=== PATIENT | female | born 1960 | race Caucasian/White ===

== ENCOUNTER 2020-02-02 16:13 | Emergency (ER) | payer MEDICARE ==
[~2020-02-02] VITALS: Ht 149.9 cm; Wt 52.9 kg
--- NOTE | 2020-02-02 16:55 | NUR ---
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
[2020-02-02] MEDS ORDERED: HYDROcodone/APAP 5/325 TABLET PO ONE (17:30)
--- NOTE | 2020-02-02 17:31 | NUR ---
FIRST CONTACT WITH PT. PT C/O HBP AT HOME OF 180/100 FOR LAST WEEK WITH CAMARENA AND N/V. PT'S AOX4. RESPS EVEN AND UNLABORED. ALL MONITORS IN PLACE. CALL LIGHT WITHIN REACH.
[2020-02-02] MEDS ORDERED: HYDROcodone/APAP 5/325 TABLET ONE (17:50)
[2020-02-02 17:51] LABS: BASOPHILS # (AUTO) 0.03 x10^3/uL (0-0.1); BASOPHILS % (AUTO) 1 % (0-1); EOSINOPHILS # (AUTO) 0.17 x10^3/uL (0-0.4); EOSINOPHILS % (AUTO) 3 % (1-7); LYMPHOCYTES # (AUTO) 2.12 x10^3/uL (1-3.4); LYMPHOCYTES % (AUTO) 40 % (22-44); MD NO; MEAN CORPUSCULAR HEMOGLOBIN 32.7 pg (27.0-34.8); MEAN CORPUSCULAR HGB CONC 32.7 g/dL (32.4-35.8); MEAN CORPUSCULAR VOLUME 99.9 fL (80-100); MEAN PLATELET VOLUME 8.4 fL (7.4-10.4); MONOCYTES % (AUTO) 8 % (2-9); NEUTROPHILS # (AUTO) 2.59 x10^3/uL (1.8-6.8); NEUTROPHILS % (AUTO) 49 % (42-75); PLATELET COUNT 207 x10^3/uL (130-400); RED CELL DISTRIBUTION WIDTH 13.8 % (9.6-15.2)
--- NOTE | 2020-02-02 18:01 | NUR ---
PT MEDICATED PER EMAR. PT TOLERATED WELL. PT'S AOX4. RESPS EVEN AND UNLABORED.
[2020-02-02 18:04] LABS: ALBUMIN 3.1 g/dL (3.4-5.0); ANION GAP 7 mmol/L (5-15); CALCIUM 8.3 mg/dL (8.5-10.1); CHLORIDE 113 mmol/L (98-107); CREATININE 0.95 mg/dL (0.55-1.02)
[2020-02-02 18:07] LABS: TROPONIN I 0.021 ng/mL (0.000-0.045)
--- NOTE | 2020-02-02 18:56 | NUR ---
PT'S PAIN LEVEL IS STILL 8/10. PT C/O CAMARENA AND NAUSEA AT THIS TIME AND REQUESTING PAIN MED. EDMD NOTIFIED.
--- NOTE | 2020-02-02 19:03 | NUR ---
REPORT GIVEN TO LINDA BENSON.
--- NOTE | 2020-02-02 19:07 | NUR ---
Break rn: Pt bedside report from Anisha gagnon. This rn to assume care of pt. Pt asking for pain medication for pain not well controlled and CAMARENA. aware. Awaiting further ordrs.
[2020-02-02] MEDS ORDERED: ONDANSETRON ODT 4 MG ONE (19:16)
[2020-02-02] MEDS ORDERED: KETOROLAC 30 MG/1 ML ONE (19:16)
--- NOTE | 2020-02-02 19:28 | NUR ---
Bedside report to Shayy gagnon. No immediate needs from family or pt. Medicated per oct.
--- NOTE | 2020-02-02 19:29 | NUR ---
BEDSIDE REPORT AND CARE FROM LINDA BENSON AT THIS TIME. PT MEDICATED FOR 8-8.5/10 CAMARENA PAIN AND NAUSEA BY LINDA BENSON. PT BP WITH SLIGHT IMPROVEMENT, DISCUSSED WITH DR. MATTHEWS, AWARE OF BP, TO CONTINUE TO MONITOR, NO NEW ORDERS RECEIVED. PT REPORTS +PHOTOPHOBIA, NAUSEA WITH CAMARENA. DENIES DIZZINESS OR VISUAL CHANGES. AMBULATED TO RESTROOM WITH STEADY GAIT. RESTING IN POSITION OF COMFORT. VSS. SB ON MONITOR. CALL LIGHT IN REACH. FALL PRECAUTIONS IN PLACE.
[2020-02-02] MEDS ORDERED: ONDANSETRON ODT 4 MG PO ONE (19:30)
[2020-02-02] MEDS ORDERED: KETOROLAC 30 MG/1 ML IM ONE (19:30)
--- NOTE | 2020-02-02 19:54 | NUR ---
BEDSIDE REPORT AND TRANSFER OF CARE TO EMILIE BENSON AT THIS TIME
--- NOTE | 2020-02-02 20:29 | NUR ---
IMPROVED BP NOTED. PT REPORTS IMPROVEMENT IN CAMARENA. DC EDUCATION PROVIDED, PT DEMONSTRATES UNDERSTANDING. PT AMBULATED STEADILY TO DC WITH RN AND SO. SO TO TRANSPORT PT HOME.
[2020-02-02 20:30] VITALS: BP 159/90
== END 2020-02-02 20:31 | disposition home or self-care (01) ==
LOC: ED 17:37
DX: I10 Essential (primary) hypertension (principal); R51 Headache
CPT/HCPCS: 36415; 80048; 82040; 83880; 84484; 85025; 96372; 99285; J1885; Q0162

== ENCOUNTER 2020-02-04 10:12 | Emergency (ER) | payer MEDICARE ==
[~2020-02-04] VITALS: Ht 149.9 cm; Wt 53.3 kg
--- NOTE | 2020-02-04 11:29 | NUR ---
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
[2020-02-04 11:34] LABS: BASOPHILS # (AUTO) 0.03 x10^3/uL (0-0.1); BASOPHILS % (AUTO) 1 % (0-1); EOSINOPHILS # (AUTO) 0.15 x10^3/uL (0-0.4); EOSINOPHILS % (AUTO) 3 % (1-7); LYMPHOCYTES # (AUTO) 2.32 x10^3/uL (1-3.4); LYMPHOCYTES % (AUTO) 40 % (22-44); MD NO; MEAN CORPUSCULAR HEMOGLOBIN 32.5 pg (27.0-34.8); MEAN CORPUSCULAR HGB CONC 32.4 g/dL (32.4-35.8); MEAN CORPUSCULAR VOLUME 100.2 fL (80-100); MEAN PLATELET VOLUME 8.6 fL (7.4-10.4); MONOCYTES # (AUTO) 0.33 x10^3/uL (0.2-0.8); MONOCYTES % (AUTO) 6 % (2-9); NEUTROPHILS # (AUTO) 2.92 x10^3/uL (1.8-6.8); NEUTROPHILS % (AUTO) 51 % (42-75); PLATELET COUNT 226 x10^3/uL (130-400); RED BLOOD COUNT 3.86 x10^6/uL (3.82-5.3)
--- NOTE | 2020-02-04 11:48 | NUR ---
PT C/O HIGH BP SINCE END OF NOVEMBER. TODAY AT HOME BP 180/110, SO PT CAME TO ED. PT C/O CAMARENA WHEN BP IS HIGH. PT DOUBLED HER LISINOPRIL THIS AM. PT CONNECTED TO MONITORING. CALL LIGHT IN REACH. AWAITING FURTHER ORDERS.
[2020-02-04 11:54] LABS: ALBUMIN 3.6 g/dL (3.4-5.0); ANION GAP 6 mmol/L (5-15); CHLORIDE 112 mmol/L (98-107); CREATININE 0.98 mg/dL (0.55-1.02)
--- NOTE | 2020-02-04 12:48 | NUR ---
PT RESTING ON DEEPTI. ALIS. WARM BLANKET PROVIDED.
--- NOTE | 2020-02-04 13:14 | NUR ---
AT BEDSIDE FOR ASSESSMENT.
[2020-02-04] MEDS ORDERED: ONDANSETRON 2MG/ML, 2ML ONE (13:22)
[2020-02-04] MEDS ORDERED: MORPHINE SULFATE 4 MG/ML, 1ML ONE (13:22)
[2020-02-04] MEDS ORDERED: ONDANSETRON 2MG/ML, 2ML IVPush ONE (13:30)
[2020-02-04] MEDS ORDERED: MORPHINE SULFATE 4 MG/ML, 1ML IVPush PRN (13:30)
[2020-02-04] MEDS ORDERED: SODIUM CHLORIDE FLUSH 10ML SYR IVF ONE (13:30)
[2020-02-04 13:53] VITALS: BP 171/93
--- NOTE | 2020-02-04 13:53 | NUR ---
PIV PLACED BY TASK RN. MEDS ADMIN PER OCT. PT TAKEN TO CT.
--- NOTE | 2020-02-04 14:22 | NUR ---
ALL RESULTS ARE BACK AT THIS TIME. CHART UP FOR RECHECK.
== END 2020-02-04 15:29 | disposition home or self-care (01) ==
LOC: ED 12:12
DX: R00.1 Bradycardia, unspecified (principal); R51 Headache; I10 Essential (primary) hypertension; R11.0 Nausea
CPT/HCPCS: 36415; 70450; 71045; 80048; 82040; 85025; 93005; 96374; 96375; 99285; J2270; J2405

== ENCOUNTER 2020-02-17 06:21 | Observation (INO) | payer MEDICARE, MEDICAID ==
[~2020-02-17] VITALS: Ht 149.9 cm; Wt 51.7 kg
[~2020-02-17 06:21] MED LIST: BACITRACIN 50,000 UNIT ONE; BUPIVACAINE/EPI 0.5% 1:200K ONE; VANCOMYCIN 1,000 MG ONE
[2020-02-17] MEDS ORDERED: LACTATED RINGERS 1,000 ML IV SCH (06:42)
[2020-02-17] MEDS ORDERED: CHLORHEXIDINE 15 ML UDC MM STA (06:42)
[2020-02-17 06:53] VITALS: BP 158/98
[2020-02-17] MEDS ORDERED: ACETAMINOPHEN 500 MG TABLET PO ONE (07:00)
[2020-02-17] MEDS ORDERED: GABAPENTIN 300 MG CAPSULE PO ONE (07:00)
[2020-02-17] MEDS ORDERED: HYDR-3240 PO (08:24)
[2020-02-17] MEDS ORDERED: DULO30CA2 PO (08:24)
[2020-02-17] MEDS ORDERED: GABA600T7 PO (08:24)
[2020-02-17] MEDS ORDERED: LEVE500T22 PO (08:24)
[2020-02-17] MEDS ORDERED: LURA60TA PO (08:24)
[2020-02-17] MEDS ORDERED: LISI-170 PO (08:24)
[2020-02-17] MEDS ORDERED: FAMO10TA31 PO (08:24)
[2020-02-17] MEDS ORDERED: METO25TA35 PO (08:24)
[2020-02-17] MEDS ORDERED: FENTANYL PF 250 MCG/5ML ONE (08:55)
[2020-02-17] MEDS ORDERED: MIDAZOLAM 1 MG/ML, 2ML ONE (08:55)
[2020-02-17] MEDS ORDERED: LIDOCAINE 4%, 4 ML SYR/CANN TP ONE (08:57)
[2020-02-17] MEDS ORDERED: MEPERIDINE/PF 25MG/0.5ML IVPush PRN (09:00)
[2020-02-17] MEDS ORDERED: LABETALOL 5MG/ML, 20ML IV PRN (09:00)
[2020-02-17] MEDS ORDERED: HYDROmorphone 1 MG/ML, 1ML INJ IVPush PRN (09:00)
[2020-02-17] MEDS ORDERED: OXYcodone 5 MG/5 ML ORAL.SOL UDC PO PRN (09:00)
[2020-02-17] MEDS ORDERED: PROMETHAZINE 25 MG/ML, 1ML IVPush PRN (09:00)
[2020-02-17] MEDS ORDERED: HALOPERIDOL 5 MG/ML IV PRN (09:00)
[2020-02-17] MEDS ORDERED: DIPHENHYDRAMINE 50 MG/ML, 1ML IVPush PRN (09:00)
[2020-02-17] MEDS ORDERED: hydrALAzine 20 MG/ML, 1ML IV PRN (09:00)
[2020-02-17] MEDS ORDERED: CEFAZOLIN 1,000 MG ONE (09:44)
[2020-02-17] MEDS ORDERED: ONDANSETRON 2MG/ML, 2ML ONE (09:44)
[2020-02-17] MEDS ORDERED: DEXAMETHASONE 4 MG/ML, 1ML ONE (09:44)
[2020-02-17] MEDS ORDERED: OXYcodone 5 MG/5 ML ORAL.SOL UDC ONE (10:06)
[2020-02-17] MEDS ORDERED: hydrALAzine 20 MG/ML, 1ML ONE (10:06)
[2020-02-17] MEDS ORDERED: HYDROmorphone 1 MG/ML, 1ML INJ ONE (10:21)
[2020-02-17] MEDS ORDERED: FENTANYL PF 100 MCG/2ML ONE (10:21)
[2020-02-17] MEDS: FENTANYL PF 100 MCG/2ML IV PRN ×2 (10:23→10:28)
[2020-02-17] MEDS ORDERED: DIAZEPAM 5 MG/ML, 2ML ONE (10:27)
[2020-02-17] MEDS ORDERED: DIAZEPAM 5 MG/ML, 2ML IVPush PRN (11:00)
[2020-02-17 14:00] VITALS: BP 153/89
[2020-02-17] MEDS ORDERED: ONDANSETRON 2MG/ML, 2ML IVPush PRN (15:00)
[2020-02-17] MEDS ORDERED: PHARMACY INSTRUCTION MC PRN (15:00)
[2020-02-17] MEDS ORDERED: hydrALAzine 20 MG/ML, 1ML IVPush PRN (15:00)
[2020-02-17] MEDS ORDERED: LABETALOL 5MG/ML, 20ML IVPush PRN (15:00)
[2020-02-17] MEDS: HYDROcodone/APAP 10/325 MG TABLET PO PRN ×2 (15:15→16:44)
[2020-02-17] MEDS ORDERED: ENOXAPARIN 40 MG/0.4 ML SQ SCH (16:00)
[2020-02-17] MEDS ORDERED: LACTULOSE 20 GM/30 ML UDC PO PRN (19:00)
[2020-02-17] MEDS ORDERED: BISACODYL 10 MG SUPP PR PRN (19:00)
[2020-02-17 19:24] VITALS: BP 145/86
[2020-02-17] MEDS ORDERED: PROMETHAZINE 25 MG/ML, 1ML IM PRN (20:00)
[2020-02-17] MEDS: OXYcodone IR 5MG TABLET PO PRN (20:12)
[2020-02-17] MEDS: LEVETIRACETAM 500 MG TABLET PO SCH (20:13)
[2020-02-17] MEDS: GABAPENTIN 300 MG CAPSULE PO SCH (20:13)
[2020-02-17] MEDS ORDERED: SENNA/DOCUSATE TABLET PO SCH (21:00)
[2020-02-17] MEDS ORDERED: LIDODERM 5% PATCH TD SCH (21:00)
[2020-02-18 01:59] VITALS: BP 155/85
[2020-02-18] MEDS: OXYcodone IR 5MG TABLET PO PRN ×3 (02:05→12:04)
[2020-02-18 04:42] LABS: BASOPHILS # (AUTO) 0.04 x10^3/uL (0-0.1); BASOPHILS % (AUTO) 1 % (0-1); EOSINOPHILS # (AUTO) 0.28 x10^3/uL (0-0.4); EOSINOPHILS % (AUTO) 4 % (1-7); LYMPHOCYTES # (AUTO) 3.75 x10^3/uL (1-3.4); LYMPHOCYTES % (AUTO) 49 % (22-44); MD NO; MEAN CORPUSCULAR HEMOGLOBIN 32.3 pg (27.0-34.8); MEAN CORPUSCULAR HGB CONC 32.1 g/dL (32.4-35.8); MEAN CORPUSCULAR VOLUME 100.7 fL (80-100); MEAN PLATELET VOLUME 8.6 fL (7.4-10.4); MONOCYTES # (AUTO) 0.61 x10^3/uL (0.2-0.8); MONOCYTES % (AUTO) 8 % (2-9); NEUTROPHILS # (AUTO) 2.93 x10^3/uL (1.8-6.8); NEUTROPHILS % (AUTO) 38 % (42-75); PLATELET COUNT 213 x10^3/uL (130-400); RED BLOOD COUNT 4.04 x10^6/uL (3.82-5.3); RED CELL DISTRIBUTION WIDTH 13.7 % (9.6-15.2)
[2020-02-18 04:55] LABS: ANION GAP 2 mmol/L (5-15); CALCIUM 8.3 mg/dL (8.5-10.1); CHLORIDE 114 mmol/L (98-107)
[2020-02-18 05:24] LABS: ALANINE AMINOTRANSFERASE 23 U/L (12-78); ALKALINE PHOSPHATASE 60 U/L (45-117); BILIRUBIN,TOTAL 0.3 mg/dL (0.2-1.0); CREATININE 0.83 mg/dL (0.55-1.02); TOTAL PROTEIN 5.8 g/dL (6.4-8.2)
[2020-02-18 06:06] VITALS: BP 170/101
[2020-02-18 07:28] VITALS: BP 170/95
[2020-02-18] MEDS ORDERED: LISINOPRIL 40 MG TABLET ONE (08:23)
[2020-02-18] MEDS: LEVETIRACETAM 500 MG TABLET PO SCH (08:29)
[2020-02-18] MEDS: HYDROcodone/APAP 10/325 MG TABLET PO PRN (08:30)
[2020-02-18] MEDS: GABAPENTIN 300 MG CAPSULE PO SCH (08:30)
[2020-02-18] MEDS ORDERED: LURASIDONE 20 MG TABLET PO SCH (09:00)
[2020-02-18] MEDS ORDERED: LISINOPRIL 20 MG TABLET PO SCH (09:00)
[2020-02-18] MEDS ORDERED: DULOXETINE 30 MG CAPSULE.DR PO SCH (09:00)
[2020-02-18] MEDS ORDERED: LIDODERM REMOVE PATCH NOTE XX SCH (09:00)
[2020-02-18 12:05] VITALS: BP 151/98
[2020-02-18] MEDS ORDERED: HYDR-3342 PO (12:09)
[2020-02-18] MEDS ORDERED: LISI1TAB20 PO (12:09)
[2020-02-18] MEDS ORDERED: PROM25SU35 PR (12:09)
[2020-02-18] MEDS ORDERED: HYDR-3653 PO (12:09)
[2020-02-18] MEDS ORDERED: METOPROLOL SUCCINATE 25 MG TAB.ER.24H PO SCH (21:00)
[2020-02-19] MEDS ORDERED: MIDAZOLAM 1 MG/ML, 2ML ONE (06:27)
[2020-02-19] MEDS ORDERED: PROPOFOL 100 ML ONE (06:27)
[2020-02-19] MEDS ORDERED: FENTANYL PF 250 MCG/5ML ONE (06:28)
[2020-02-19] MEDS ORDERED: PROPOFOL 10 MG/ML, 20ML ONE ×2 (06:29)
[2020-02-19] MEDS ORDERED: SUCCINYLCHOLINE 20 MG/ML, 10ML ONE (06:30)
[2020-02-19] MEDS ORDERED: ROCURONIUM 10MG/ML,5ML ONE (06:31)
[2020-02-19] MEDS ORDERED: DEXAMETHASONE 4 MG/ML, 1ML ONE (07:26)
[2020-02-19] MEDS ORDERED: CEFAZOLIN 1,000 MG ONE (07:38)
[2020-02-19] MEDS ORDERED: EPHEDRINE 50 MG/ML, 1ML ONE (07:41)
[2020-02-19] MEDS ORDERED: PHENYLEPHRINE 10 MG/ML ONE (08:01)
[2020-03-06] MEDS ORDERED: HYDR-3653 PO (11:11)
== END 2020-02-18 13:07 | disposition home or self-care (01) ==
LOC: INTOOBSV 06:21 → ORIP 06:21 → 3WST 09:17 → 4WST 12:09 → DCLOUNGE 02-18 13:00
PROVIDERS: ADMIT Neurological Surgery; ATTEND Internal Medicine
DX: M48.061 Spinal stenosis, lumbar region without neurogenic claudication (principal); I10 Essential (primary) hypertension; M54.16 Radiculopathy, lumbar region; G40.909 Epilepsy, unspecified, not intractable, without status epilepticus; F32.9 Major depressive disorder, single episode, unspecified; F41.9 Anxiety disorder, unspecified; I25.10 Atherosclerotic heart disease of native coronary artery without angina pectoris; D75.89 Other specified diseases of blood and blood-forming organs; G89.29 Other chronic pain; E66.9 Obesity, unspecified; Z88.0 Allergy status to penicillin; Z79.899 Other long term (current) drug therapy
CPT/HCPCS: 22558; 22585; 36415; 80053; 82607; 84443; 85025; 87635; 96372; 96374; 96375; G0378; J0360; J0690; J1100; J1170; J1650; J2250; J2405; J2550; J3010; J3360; J7120; J2704; J3370; J0330; J2370

== ENCOUNTER 2020-03-05 08:00 | Outpatient (CLI) | payer MEDICARE, MEDICAID ==
[~2020-03-05 08:00] MED LIST changes: -BACITRACIN 50,000 UNIT ONE; -BUPIVACAINE/EPI 0.5% 1:200K ONE; +DULO30CA2 PO; +FAMO10TA31 PO; +GABA600T7 PO; +HYDR-3240 PO; +HYDR-3342 PO; +HYDR-3653 PO; +LEVE500T22 PO; +LISI-170 PO; +LISI1TAB20 PO; +LURA60TA PO; +METO25TA35 PO; +PROM25SU35 PR; -VANCOMYCIN 1,000 MG ONE
[2020-03-06] MEDS ORDERED: HYDR-3653 PO (11:11)
[2020-03-09] MEDS ORDERED: FAMO20TA7 PO (06:07)
[2020-03-09] MEDS ORDERED: LEVE500T8 PO (06:07)
[2020-03-20] MEDS ORDERED: METH750T87 PO (13:48)
[2020-03-20] MEDS ORDERED: DOXY100C2 PO (13:48)
[2020-03-20] MEDS ORDERED: OXYC5TAB3 PO (13:49)
[2020-03-20] MEDS ORDERED: MORP-52 PO (13:50)
[2020-03-20] MEDS ORDERED: SENN-190 PO (13:51)
[2020-03-20] MEDS ORDERED: [UNRECOGNIZED DRUG - CODE] PO (13:53)
== END 2020-03-05 23:59 | disposition home or self-care (01) ==
LOC: STAR 08:00
PROVIDERS: ATTEND Neurological Surgery
DX: Z01.818 Encounter for other preprocedural examination (principal); Z11.59 Encounter for screening for other viral diseases
CPT/HCPCS: 36415; 87635

== ENCOUNTER 2020-04-27 15:09 | Inpatient (IN) | payer MEDICARE, MEDICAID ==
[~2020-04-27] VITALS: Ht 154.9 cm; Wt 50.1 kg
[~2020-04-27 15:09] MED LIST changes: +DOXY100C2 PO; +FAMO20TA7 PO; +LEVE500T8 PO; +METH750T87 PO; +MORP-52 PO; +OXYC5TAB3 PO; +SENN-190 PO; +[UNRECOGNIZED DRUG - CODE] PO
[2020-04-27] MEDS ORDERED: LORazepam 2 MG/ML, 1ML ONE (15:14)
[2020-04-27] MEDS ORDERED: PLEASE ENTER HEIGHT AND WEIGHT MC SCH (15:30)
[2020-04-27] MEDS ORDERED: LORazepam 2 MG/ML, 1ML IVPush ONE (15:30)
--- NOTE | 2020-04-27 15:40 | NUR ---
PT BIB EMS, PT WITH ALOC AT HOME PER . PER EMS WHEN ARRIVED, PT WITH WITNESSED SIEZURE. PT WITH LABILE BP WELLPER EMS, 205/90 THEN DOWN TO 90'S/60'S. WHEN PT ARRIVED TO ER, PT IS ALOC, NOT ABLE TO ANSWER ANY QUESTIONS APPROPRIATELY. PT IS RESTLESS, MOVING AROUND IN BED. PT PROTECTING OWN AIRWAY WELL. PT PLACED ON MONITORS, ERMD AT FOR ASSESSMENT. WILL FOLLOW ORDERS.
[2020-04-27 15:51] LABS: BASOPHILS # (AUTO) 0.03 x10^3/uL (0-0.1); BASOPHILS % (AUTO) 0 % (0-1); EOSINOPHILS # (AUTO) 0.05 x10^3/uL (0-0.4); EOSINOPHILS % (AUTO) 1 % (1-7); LYMPHOCYTES # (AUTO) 1.41 x10^3/uL (1-3.4); LYMPHOCYTES % (AUTO) 17 % (22-44); MD NO; MEAN CORPUSCULAR HEMOGLOBIN 29.9 pg (27.0-34.8); MEAN CORPUSCULAR HGB CONC 32.2 g/dL (32.4-35.8); MEAN PLATELET VOLUME 8.2 fL (7.4-10.4); MONOCYTES # (AUTO) 0.17 x10^3/uL (0.2-0.8); MONOCYTES % (AUTO) 2 % (2-9); NEUTROPHILS # (AUTO) 6.48 x10^3/uL (1.8-6.8); NEUTROPHILS % (AUTO) 80 % (42-75); PLATELET COUNT 382 x10^3/uL (130-400); RED BLOOD COUNT 4.41 x10^6/uL (3.82-5.3); RED CELL DISTRIBUTION WIDTH 15.8 % (9.6-15.2)
--- NOTE | 2020-04-27 15:55 | NUR ---
LABS DRAWN AND CXR COMPLETED. TASK RN AT BEDSIDE, WILL GO TO CT WITH PT. PT SLIGHTLY MORE AWAKE, ABLE TO ANSWER SOME QUESTIONS APPROPRIATELY.
--- NOTE | 2020-04-27 15:58 | NUR ---
SPOKE WITH PT'S , STATES PT WITH NEW DX OF SIEZURES X6 WEEKS AGO SECONDARY TO HTN. PER , PT WENT "CATATONIC" AND WAS UNABLE TO SPEAK SUDDENLY SO 911 WAS CALLED. PER , WHEN EMS ARRIVED, PT HAD A SIEZURE. PER , PT WITH HX OF LOW BACK SURGERY X 1 MONTH AGO. WILL LET ERMD KNOW.
[2020-04-27 16:02] LABS: ALANINE AMINOTRANSFERASE 16 U/L (12-78); ALBUMIN 3.9 g/dL (3.4-5.0); ANION GAP 12 mmol/L (5-15); CALCIUM 9.5 mg/dL (8.5-10.1); CHLORIDE 98 mmol/L (98-107); CREATININE 0.99 mg/dL (0.55-1.02)
[2020-04-27 16:05] LABS: ALKALINE PHOSPHATASE 140 U/L (45-117); BILIRUBIN,TOTAL 0.6 mg/dL (0.2-1.0); TOTAL PROTEIN 7.9 g/dL (6.4-8.2)
--- NOTE | 2020-04-27 17:04 | NUR ---
PT'S AT BEDSIDE. PT REMAINS ON MONITORS, VSS. PT WITH FREQUENT URINATION, ERMD AWARE. PT'S BEDSHEETS CHANGED. PT CURRENTLY A&OX3, ANSWERING MOST QUESTIONS APPROPRIATELY, REMAINS PROTECTING OWN AIRWAY WELL. CONT TO MONITOR.
[2020-04-27 17:20] LABS: MICROSCOPIC AUTO
[2020-04-27] MEDS ORDERED: METHOCARBAMOL 750 MG TABLET PO PRN (18:00)
[2020-04-27] MEDS ORDERED: OXYcodone IR 5MG TABLET PO PRN (18:00)
[2020-04-27] MEDS ORDERED: LABETALOL 5MG/ML, 20ML IVPush PRN (18:00)
[2020-04-27] MEDS ORDERED: LACTATED RINGERS 1,000 ML IV ONE (18:00)
[2020-04-27] MEDS ORDERED: hydrALAzine 20 MG/ML, 1ML IVPush PRN (18:00)
[2020-04-27] MEDS ORDERED: ONDANSETRON ODT 4 MG PO PRN (18:00)
[2020-04-27] MEDS ORDERED: SENNOSIDES 8.6 MG TABLET PO PRN (18:00)
[2020-04-27] MEDS ORDERED: BUTALB/APAP/CAFFEINE 50MG/325MG/40MG PO PRN (18:00)
[2020-04-27] MEDS ORDERED: ACETAMINOPHEN 325 MG TABLET PO PRN (18:00)
[2020-04-27] MEDS ORDERED: POLYETHYLENE GLYCOL 17 GM PACKET PO PRN (18:00)
[2020-04-27] MEDS ORDERED: MELATONIN 5 MG TABLET PO PRN (18:00)
[2020-04-27] MEDS ORDERED: ONDANSETRON 2MG/ML, 2ML IVPush PRN (18:00)
--- NOTE | 2020-04-27 18:22 | NUR ---
ADMITTING MD AT BEDSIDE, AWARE OF PT'S BP, NO NEW ORDERS CONCERNING BP. PT AND PT'S AWARE OF POC, PT TO BE [facility] ADMIT. PT REMAINS ON MONITORS. WILL FOLLOW ORDERS. PT CURRENTLY ALERT TO BASELINE, ABLE TO FOLLOW COMMANDS, PROTECTING OWN AIRWAY WELL. CONT TO MONITOR.
[2020-04-27] MEDS ORDERED: ENOXAPARIN 40 MG/0.4 ML ONE (18:42)
--- NOTE | 2020-04-27 18:55 | NUR ---
PT TO IMAGING.
[2020-04-27] MEDS: ENOXAPARIN 40 MG/0.4 ML SQ SCH (19:27)
--- NOTE | 2020-04-27 20:13 | NUR ---
PT'S ZARIA [phone].
--- NOTE | 2020-04-27 20:30 | NUR ---
RPEORT GIVEN TO JAILENE BENSON. PT RESTING IN BED, ABLE TO ROUSE BY VOICE. PT REMAINS ON MONITORS. PT OK TO TRANSFER TO FLOOR.
--- NOTE | 2020-04-27 21:25 | NUR ---
PT TRANSFERED TO FLOOR, HAS ALL OWN BELONGINGS.
[2020-04-27 21:30] VITALS: BP 170/80
[2020-04-27] MEDS: GABAPENTIN 300 MG CAPSULE PO SCH (22:00)
[2020-04-27] MEDS: LURASIDONE 20 MG TABLET PO SCH (22:00)
[2020-04-27] MEDS: METOPROLOL TARTRATE 25 MG TAB PO SCH (22:00)
[2020-04-28 01:48] VITALS: BP 130/76
[2020-04-28 07:05] LABS: BASOPHILS # (AUTO) 0.02 x10^3/uL (0-0.1); BASOPHILS % (AUTO) 0 % (0-1); EOSINOPHILS # (AUTO) 0.02 x10^3/uL (0-0.4); EOSINOPHILS % (AUTO) 0 % (1-7); LYMPHOCYTES # (AUTO) 1.74 x10^3/uL (1-3.4); LYMPHOCYTES % (AUTO) 19 % (22-44); MD NO; MEAN CORPUSCULAR HEMOGLOBIN 30.3 pg (27.0-34.8); MEAN CORPUSCULAR HGB CONC 32.5 g/dL (32.4-35.8); MEAN CORPUSCULAR VOLUME 93.3 fL (80-100); MEAN PLATELET VOLUME 8.5 fL (7.4-10.4); MONOCYTES % (AUTO) 9 % (2-9); NEUTROPHILS # (AUTO) 6.76 x10^3/uL (1.8-6.8); NEUTROPHILS % (AUTO) 72 % (42-75); PLATELET COUNT 338 x10^3/uL (130-400); RED BLOOD COUNT 4.58 x10^6/uL (3.82-5.3); RED CELL DISTRIBUTION WIDTH 15.8 % (9.6-15.2)
[2020-04-28 07:11] VITALS: BP 119/77
[2020-04-28 07:20] LABS: ALBUMIN 3.3 g/dL (3.4-5.0); ANION GAP 8 mmol/L (5-15); CALCIUM 9.6 mg/dL (8.5-10.1); CHLORIDE 98 mmol/L (98-107)
[2020-04-28 07:23] LABS: ALANINE AMINOTRANSFERASE 15 U/L (12-78); ALKALINE PHOSPHATASE 135 U/L (45-117); BILIRUBIN,TOTAL 0.5 mg/dL (0.2-1.0); CREATININE 0.77 mg/dL (0.55-1.02); TOTAL PROTEIN 7.2 g/dL (6.4-8.2)
[2020-04-28] MEDS ORDERED: HYDROcodone/APAP 5/325 TABLET ONE ×2 (08:05→13:57)
[2020-04-28] MEDS: FAMOTIDINE 40 MG TABLET PO SCH (08:21)
[2020-04-28] MEDS: SENNA/DOCUSATE TABLET PO SCH (08:21)
[2020-04-28] MEDS: DULOXETINE 30 MG CAPSULE.DR PO SCH (08:22)
[2020-04-28] MEDS: GABAPENTIN 300 MG CAPSULE PO SCH ×2 (08:22→20:09)
[2020-04-28 15:00] VITALS: BP 135/88
[2020-04-28] MEDS ORDERED: MAGNESIUM SULFATE PMX 2GM/50ML 50 ML IV ONE (15:00)
[2020-04-28] MEDS ORDERED: POTASSIUM CHLORIDE 20 MEQ in SODIUM CHLORIDE 0.9% 250 ML IV ONE (15:00)
[2020-04-28] MEDS: ENOXAPARIN 40 MG/0.4 ML SQ SCH (18:41)
[2020-04-28 19:50] VITALS: BP 132/71
[2020-04-28] MEDS: METOPROLOL TARTRATE 25 MG TAB PO SCH (20:09)
[2020-04-28] MEDS: LURASIDONE 20 MG TABLET PO SCH (20:09)
[2020-04-29 00:38] VITALS: BP 147/73
[2020-04-29 06:45] LABS: BASOPHILS # (AUTO) 0.03 x10^3/uL (0-0.1); BASOPHILS % (AUTO) 1 % (0-1); EOSINOPHILS # (AUTO) 0.05 x10^3/uL (0-0.4); EOSINOPHILS % (AUTO) 1 % (1-7); LYMPHOCYTES # (AUTO) 1.92 x10^3/uL (1-3.4); LYMPHOCYTES % (AUTO) 34 % (22-44); MD NO; MEAN CORPUSCULAR HEMOGLOBIN 30.3 pg (27.0-34.8); MEAN CORPUSCULAR HGB CONC 32.8 g/dL (32.4-35.8); MEAN CORPUSCULAR VOLUME 92.4 fL (80-100); MEAN PLATELET VOLUME 8.3 fL (7.4-10.4); MONOCYTES # (AUTO) 0.59 x10^3/uL (0.2-0.8); MONOCYTES % (AUTO) 10 % (2-9); NEUTROPHILS # (AUTO) 3.13 x10^3/uL (1.8-6.8); NEUTROPHILS % (AUTO) 55 % (42-75); PLATELET COUNT 262 x10^3/uL (130-400); RED BLOOD COUNT 4.43 x10^6/uL (3.82-5.3); RED CELL DISTRIBUTION WIDTH 15.8 % (9.6-15.2)
[2020-04-29 06:46] LABS: ALBUMIN 3.4 g/dL (3.4-5.0); ANION GAP 8 mmol/L (5-15); CALCIUM 9.3 mg/dL (8.5-10.1); CHLORIDE 107 mmol/L (98-107)
[2020-04-29 06:49] LABS: CREATININE 0.85 mg/dL (0.55-1.02)
[2020-04-29 07:18] VITALS: BP 143/86
[2020-04-29] MEDS ORDERED: HYDROcodone/APAP 5/325 TABLET ONE ×2 (08:41→13:51)
[2020-04-29] MEDS: GABAPENTIN 300 MG CAPSULE PO SCH (08:43)
[2020-04-29] MEDS: FAMOTIDINE 40 MG TABLET PO SCH (08:43)
[2020-04-29] MEDS: DULOXETINE 30 MG CAPSULE.DR PO SCH (08:44)
[2020-04-29] MEDS: SENNA/DOCUSATE TABLET PO SCH (08:46)
[2020-04-29] MEDS ORDERED: POTASSIUM CHLORIDE 20 MEQ TAB.ER.PRT PO SCH (10:00)
[2020-04-29 12:39] VITALS: BP 151/85
== END 2020-04-29 17:04 | disposition home or self-care (01) | DRG 101 ==
LOC: ED 18:47 → EDIP 19:59 → 4WST 21:25
PROVIDERS: ADMIT Family Medicine; ATTEND Family Medicine
DX: G40.909 Epilepsy, unspecified, not intractable, without status epilepticus (principal); E87.1 Hypo-osmolality and hyponatremia; E78.5 Hyperlipidemia, unspecified; E86.0 Dehydration; F12.90 Cannabis use, unspecified, uncomplicated; J44.9 Chronic obstructive pulmonary disease, unspecified; Z87.891 Personal history of nicotine dependence; Z90.710 Acquired absence of both cervix and uterus; Z91.14 Patient's other noncompliance with medication regimen; Z91.19 Patient's noncompliance with other medical treatment and regimen; Z96.652 Presence of left artificial knee joint; I10 Essential (primary) hypertension; G89.29 Other chronic pain; Z88.1 Allergy status to other antibiotic agents; Z88.5 Allergy status to narcotic agent; Z88.6 Allergy status to analgesic agent; R73.9 Hyperglycemia, unspecified; Z90.89 Acquired absence of other organs
CPT/HCPCS: 36415; 70450; 70551; 71045; 80053; 80069; 80307; 81001; 83735; 84443; 85025; 95812; 96360; 96361; G0378; J1650; J3480; J2060; J3475; J7050; J7120

== ENCOUNTER 2020-05-26 19:16 | Emergency (ER) | payer MEDICARE, MEDICAID ==
[~2020-05-26] VITALS: Ht 149.9 cm; Wt 44.4 kg
--- NOTE | 2020-05-26 19:30 | NUR ---
51 year old female to ed for lower back pain, nausea, and htn. She also states she feels similar to how she feels before she has a seizure.
[2020-05-26] MEDS ORDERED: ONDANSETRON 2MG/ML, 2ML ONE (19:59)
[2020-05-26] MEDS ORDERED: MORPHINE SULFATE 4 MG/ML, 1ML ONE ×2 (19:59→23:06)
[2020-05-26] MEDS: MORPHINE SULFATE 4 MG/ML, 1ML IVPush PRN ×2 (20:00→23:07)
[2020-05-26] MEDS ORDERED: hydrALAzine 20 MG/ML, 1ML IV ONE (20:00)
[2020-05-26] MEDS ORDERED: SODIUM CHLORIDE FLUSH 10ML SYR IVF ONE (20:00)
[2020-05-26] MEDS ORDERED: ONDANSETRON 2MG/ML, 2ML IVPush ONE (20:00)
[2020-05-26 20:13] LABS: BASOPHILS # (AUTO) 0.01 x10^3/uL (0-0.1); BASOPHILS % (AUTO) 0 % (0-1); EOSINOPHILS # (AUTO) 0.11 x10^3/uL (0-0.4); EOSINOPHILS % (AUTO) 2 % (1-7); LYMPHOCYTES # (AUTO) 1.74 x10^3/uL (1-3.4); LYMPHOCYTES % (AUTO) 31 % (22-44); MD NO; MEAN CORPUSCULAR HEMOGLOBIN 29.8 pg (27.0-34.8); MEAN CORPUSCULAR HGB CONC 32.1 g/dL (32.4-35.8); MEAN PLATELET VOLUME 7.9 fL (7.4-10.4); MONOCYTES # (AUTO) 0.33 x10^3/uL (0.2-0.8); MONOCYTES % (AUTO) 6 % (2-9); NEUTROPHILS # (AUTO) 3.41 x10^3/uL (1.8-6.8); NEUTROPHILS % (AUTO) 61 % (42-75); PLATELET COUNT 276 x10^3/uL (130-400); RED CELL DISTRIBUTION WIDTH 15.8 % (9.6-15.2)
[2020-05-26 20:27] LABS: ALBUMIN 3.9 g/dL (3.4-5.0); ANION GAP 6 mmol/L (5-15); CALCIUM 9.5 mg/dL (8.5-10.1); CHLORIDE 107 mmol/L (98-107)
[2020-05-26 20:30] LABS: ALANINE AMINOTRANSFERASE 33 U/L (12-78); ALKALINE PHOSPHATASE 129 U/L (45-117); BILIRUBIN,TOTAL 0.5 mg/dL (0.2-1.0); CREATININE 0.86 mg/dL (0.55-1.02); TOTAL PROTEIN 7.7 g/dL (6.4-8.2)
[2020-05-26] MEDS ORDERED: ENALAPRILAT 1.25 MG/ML, 2ML IV ONE (20:30)
[2020-05-26] MEDS ORDERED: ENALAPRILAT 1.25 MG/ML, 1ML ONE (20:39)
[2020-05-26] MEDS ORDERED: KETOROLAC 30 MG/1 ML IVPush ONE (21:30)
[2020-05-26] MEDS ORDERED: PROMETHAZINE 25 MG/ML, 1ML IM ONE (21:30)
[2020-05-26] MEDS ORDERED: KETOROLAC 30 MG/1 ML ONE (21:41)
[2020-05-26] MEDS ORDERED: PROMETHAZINE 25 MG/ML, 1ML ONE (21:41)
[2020-05-27] MEDS ORDERED: hydrALAzine 20 MG/ML, 1ML IV ONE (00:30)
--- NOTE | 2020-05-27 00:30 | NUR ---
TASK RN: REPORT OF PT FROM KELLEY BROOKS. ASSUMING CARE OF PT FOR PRIMARY RN LUNCH BREAK AT THIS TIME.
[2020-05-27 01:11] VITALS: BP 122/75
== END 2020-05-27 01:40 | disposition home or self-care (01) ==
LOC: ED 19:46
DX: R11.0 Nausea (principal); M54.5 Low back pain; G89.29 Other chronic pain; I16.9 Hypertensive crisis, unspecified; R00.1 Bradycardia, unspecified; G40.909 Epilepsy, unspecified, not intractable, without status epilepticus
CPT/HCPCS: 36415; 80053; 84484; 85025; 93005; 96372; 96374; 96375; 96376; 99285; J1885; J2270; J2550

== ENCOUNTER 2020-05-28 18:36 | Emergency (ER) | payer MEDICARE, MEDICAID ==
[~2020-05-28] VITALS: Ht 149.9 cm; Wt 43.7 kg
[2020-05-28 18:45] VITALS: BP 138/90
--- NOTE | 2020-05-28 19:53 | NUR ---
60/F. 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 Pt does not take BP meds at home. Pt states her high blood pressure was due to her back pain. Seen in the ER Thursday for back pain. Pt had ran out of her pain medication. Given [place] 5mg at home, not helping with the pain. Pt called surgeon office for new prescription of oxycodone 10mg, no call back. Pt is due for a refill. 04/09 pain in triage. BP 143/91 now.
[2020-05-28] MEDS ORDERED: HYDROmorphone 1 MG/ML, 1ML INJ ONE (20:15)
[2020-05-28] MEDS ORDERED: ONDANSETRON ODT 4 MG ONE (20:15)
[2020-05-28] MEDS ORDERED: HYDROmorphone 1 MG/ML, 1ML INJ IM ONE (20:30)
[2020-05-28] MEDS ORDERED: ONDANSETRON ODT 4 MG PO ONE (20:30)
== END 2020-05-28 21:27 | disposition home or self-care (01) ==
LOC: ED 19:06
DX: S39.012A Strain of muscle, fascia and tendon of lower back, initial encounter (principal); I10 Essential (primary) hypertension; Z87.891 Personal history of nicotine dependence; X58.XXXA Exposure to other specified factors, initial encounter; Y93.89 Activity, other specified; Y92.89 Other specified places as the place of occurrence of the external cause; Y99.8 Other external cause status
CPT/HCPCS: 96372; 99283; J1170; Q0162

== ENCOUNTER 2020-06-04 19:20 | Emergency (ER) | payer MEDICARE, MEDICAID ==
[~2020-06-04] VITALS: Ht 149.9 cm; Wt 46.5 kg
[2020-06-04] MEDS ORDERED: SODIUM CHLORIDE FLUSH 10ML SYR IVF ONE (20:00)
--- NOTE | 2020-06-04 20:17 | NUR ---
PHILOSOPHY INSTRUCTOR: PT AMBULATORY TO ROOM WITH STEADY GAIT FROM [place]OBTIAGO AT THIS TIME, ACCOMPANIED BY FLAVORER
[2020-06-04 20:20] LABS: BASOPHILS % (AUTO) 0 % (0-1); EOSINOPHILS % (AUTO) 3 % (1-7); LYMPHOCYTES % (AUTO) 21 % (22-44); MEAN CORPUSCULAR HEMOGLOBIN 29.5 pg (27.0-34.8); MEAN CORPUSCULAR HGB CONC 32.4 g/dL (32.4-35.8); MEAN PLATELET VOLUME 7.9 fL (7.4-10.4); MONOCYTES % (AUTO) 6 % (2-9); NEUTROPHILS % (AUTO) 69 % (42-75); PLATELET COUNT 297 x10^3/uL (130-400); RED CELL DISTRIBUTION WIDTH 15.6 % (9.6-15.2)
[2020-06-04 20:24] LABS: MD NO
[2020-06-04 20:28] LABS: ALBUMIN 3.8 g/dL (3.4-5.0); ANION GAP 6 mmol/L (5-15); CALCIUM 9.3 mg/dL (8.5-10.1); CHLORIDE 104 mmol/L (98-107)
[2020-06-04 20:29] LABS: CREATININE 0.92 mg/dL (0.55-1.02)
[2020-06-04] MEDS ORDERED: LORazepam 1MG TABLET ONE (20:57)
[2020-06-04] MEDS ORDERED: HYDROmorphone 1 MG/ML, 1ML INJ ONE (20:57)
[2020-06-04] MEDS ORDERED: HYDROmorphone 1 MG/ML, 1ML INJ IM ONE (21:00)
[2020-06-04] MEDS ORDERED: LORazepam 1MG TABLET PO ONE (21:00)
[2020-06-04 21:15] LABS: MICROSCOPIC AUTO
[2020-06-04 22:07] VITALS: BP 145/84
== END 2020-06-04 22:10 | disposition home or self-care (01) ==
LOC: ED 21:47
DX: S39.012A Strain of muscle, fascia and tendon of lower back, initial encounter (principal); R10.30 Lower abdominal pain, unspecified; I10 Essential (primary) hypertension; R51.9 Headache, unspecified; R11.0 Nausea; G40.909 Epilepsy, unspecified, not intractable, without status epilepticus; Z87.891 Personal history of nicotine dependence; X58.XXXA Exposure to other specified factors, initial encounter; Y93.89 Activity, other specified; Y92.89 Other specified places as the place of occurrence of the external cause; Y99.8 Other external cause status
CPT/HCPCS: 36415; 80048; 81001; 82040; 85025; 93005; 96372; 99284; J1170

== ENCOUNTER 2020-06-10 11:21 | Emergency (ER) | payer MEDICARE, MEDICAID ==
[~2020-06-10] VITALS: Ht 149.9 cm; Wt 45.1 kg
[2020-06-10] MEDS ORDERED: ONDANSETRON ODT 4 MG ONE (12:12)
[2020-06-10] MEDS ORDERED: LORazepam 0.5MG TABLET ONE (12:13)
[2020-06-10] MEDS ORDERED: HYDROmorphone 1 MG/ML, 1ML INJ ONE (12:13)
[2020-06-10 12:15] VITALS: BP 172/92
[2020-06-10] MEDS ORDERED: LORazepam 0.5MG TABLET PO ONE (12:30)
[2020-06-10] MEDS ORDERED: HYDROmorphone 1 MG/ML, 1ML INJ IM ONE (12:30)
[2020-06-10] MEDS ORDERED: ONDANSETRON ODT 4 MG PO ONE (12:30)
== END 2020-06-10 13:25 | disposition home or self-care (01) ==
LOC: ED 12:52
DX: S39.012A Strain of muscle, fascia and tendon of lower back, initial encounter (principal); I10 Essential (primary) hypertension; G40.909 Epilepsy, unspecified, not intractable, without status epilepticus; X58.XXXA Exposure to other specified factors, initial encounter; Y93.89 Activity, other specified; Y92.89 Other specified places as the place of occurrence of the external cause; Y99.8 Other external cause status
CPT/HCPCS: 96372; 99283; J1170; Q0162

== ENCOUNTER 2020-06-23 20:04 | Emergency (ER) | payer MEDICARE, MEDICAID ==
[~2020-06-23] VITALS: Ht 149.9 cm; Wt 45.8 kg
[2020-06-23] MEDS ORDERED: OXYC10TA6 PO (20:21)
[2020-06-23] MEDS ORDERED: DULO60CA56 PO (20:21)
[2020-06-23] MEDS ORDERED: METH750T2 PO (20:21)
[2020-06-23] MEDS ORDERED: METO-282 PO (20:21)
[2020-06-23] MEDS ORDERED: FAMO40TA4 PO (20:21)
--- NOTE | 2020-06-23 20:23 | NUR ---
PT STATES SHE'S HERE FOR "HIGH BLOOD PRESSURE FROM CHRONIC PAIN". "I DON'T TAKE HIGH BLOOD PRESSURE MEDICINE" TAKES METOPROLOL FOR "CVT".
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
[2020-06-23] MEDS ORDERED: hydrALAzine 20 MG/ML, 1ML IV ONE (20:30)
[2020-06-23] MEDS ORDERED: OXYcodone/APAP 5/325MG TABLET PO ONE (20:30)
--- NOTE | 2020-06-23 20:36 | NUR ---
"I HAD ONE OXY 10" AT 0700.
[2020-06-23] MEDS ORDERED: OXYcodone/APAP 5/325MG TABLET ONE (20:40)
[2020-06-23 20:45] LABS: BASOPHILS % (AUTO) 1 % (0-1); EOSINOPHILS % (AUTO) 3 % (1-7); LYMPHOCYTES % (AUTO) 40 % (22-44); MEAN CORPUSCULAR HEMOGLOBIN 29.3 pg (27.0-34.8); MEAN CORPUSCULAR HGB CONC 32.4 g/dL (32.4-35.8); MEAN PLATELET VOLUME 7.9 fL (7.4-10.4); MONOCYTES % (AUTO) 8 % (2-9); NEUTROPHILS % (AUTO) 49 % (42-75); PLATELET COUNT 293 x10^3/uL (130-400); RED BLOOD COUNT 4.74 x10^6/uL (3.82-5.3); RED CELL DISTRIBUTION WIDTH 15.9 % (9.6-15.2)
[2020-06-23 20:46] LABS: MD NO
--- NOTE | 2020-06-23 20:48 | NUR ---
APRESOLINE IV UNAVAILBLE; ERP NOTIFIED. VASOTEC ORDERED; NONE IN OMNICELL; PHARMACY CALLED FOR MED; PER TECH, SHE WILL VERIFY ORDER AND SEND MED TO ED.
[2020-06-23 20:53] LABS: ALBUMIN 3.7 g/dL (3.4-5.0); ANION GAP 3 mmol/L (5-15); CALCIUM 9.3 mg/dL (8.5-10.1); CHLORIDE 106 mmol/L (98-107); CREATININE 0.93 mg/dL (0.55-1.02)
[2020-06-23 20:57] LABS: TROPONIN I 0.032 ng/mL (0.000-0.045)
[2020-06-23] MEDS ORDERED: ENALAPRILAT 1.25 MG/ML, 2ML IV ONE ×2 (21:00→22:00)
--- NOTE | 2020-06-23 21:06 | NUR ---
AMBULATORY TO & FROM [facility] W/OUT INCIDENT; GAIT STEADY.
[2020-06-23] MEDS ORDERED: ONDANSETRON 2MG/ML, 2ML ONE (21:32)
[2020-06-23] MEDS ORDERED: NITROGLYCERIN SINGLE TAB 0.4 MG SL PRN (22:00)
[2020-06-23] MEDS ORDERED: PROCHLORPERAZINE 5 MG/ML, 2ML IVPush ONE (22:00)
[2020-06-23] MEDS ORDERED: ONDANSETRON 2MG/ML, 2ML IVPush ONE (22:00)
--- NOTE | 2020-06-23 22:03 | NUR ---
CALLED PHARMACY FOR ADDITIONAL VASOTEC; MEDICATION WILL BE DELIVERED SOON, PER TECH.
--- NOTE | 2020-06-23 22:05 | NUR ---
PT REPORT TO KELLEY MCKEON. PT CARE TRANSFERRED.
--- NOTE | 2020-06-23 22:06 | NUR ---
Pt report from Diann gagnon. This rn to assume care of pt. will give meds according to oct.
[2020-06-23] MEDS ORDERED: PROCHLORPERAZINE 5 MG/ML, 2ML ONE (22:08)
[2020-06-23] MEDS ORDERED: NITROGLYCERIN SINGLE TAB 0.4 MG SL ONE (22:09)
[2020-06-23] MEDS ORDERED: PROMETHAZINE 25 MG/ML, 1ML ONE (22:53)
[2020-06-23] MEDS ORDERED: MORPHINE SULFATE 4 MG/ML, 1ML ONE (22:53)
--- NOTE | 2020-06-23 22:57 | NUR ---
Pt medicated per mar for pain. Offered phenergan for further nausea. Refusing at this time. Awaiting recheck from .
[2020-06-23] MEDS ORDERED: morphine SULFATE 10 MG/ML, 1ML IVPush ONE (23:00)
[2020-06-23] MEDS ORDERED: PROMETHAZINE 25 MG/ML, 1ML IM ONE (23:00)
[2020-06-23 23:13] VITALS: BP 185/107
== END 2020-06-23 23:20 | disposition home or self-care (01) ==
LOC: ED 20:30
DX: M54.5 Low back pain (principal); G89.29 Other chronic pain; R11.10 Vomiting, unspecified; I10 Essential (primary) hypertension; G40.909 Epilepsy, unspecified, not intractable, without status epilepticus
CPT/HCPCS: 36415; 80048; 82040; 84484; 85025; 93005; 96374; 96375; 96376; 99285; J0780; J2270; J2405

== ENCOUNTER 2020-10-04 11:59 | Inpatient (IN) | payer MEDICARE ==
[~2020-10-04] VITALS: Ht 149.9 cm; Wt 64.0 kg
[~2020-10-04 11:59] MED LIST changes: +DULO60CA56 PO; +FAMO40TA4 PO; +HYDR-1067 PO; -HYDR-3240 PO; +METH-640 PO; +METO-282 PO; +OXYC10TA6 PO; -OXYC5TAB3 PO; +OXYC5TAB98 PO
--- NOTE | 2020-10-04 12:21 | NUR ---
PT C/O LEFT KNEE SWELLING AND PAIN AFTER FALL THIS AM. PT DENIES LOC. POSITIVE CMS TO LOWER EXTREMITIES.
[2020-10-04] MEDS ORDERED: ONDANSETRON ODT 4 MG ONE (12:27)
[2020-10-04] MEDS ORDERED: MORPHINE SULFATE 4 MG/ML, 1ML ONE ×2 (12:27→14:34)
[2020-10-04] MEDS ORDERED: LIDOCAINE-MPF 1%, 2ML ONE (12:27)
[2020-10-04] MEDS ORDERED: DIPH,PERTUSS(ACELL),TET VAC/PF 0.5 ML IM-VACC ONE ×2 (12:28→12:30)
[2020-10-04] MEDS ORDERED: ONDANSETRON ODT 4 MG PO ONE (12:30)
[2020-10-04] MEDS ORDERED: SODIUM CHLORIDE FLUSH 10ML SYR IVF ONE ×2 (12:30→13:30)
[2020-10-04] MEDS ORDERED: LIDOCAINE-MPF 1%, 5ML INFIL ONE (12:30)
[2020-10-04] MEDS: MORPHINE SULFATE 4 MG/ML, 1ML IVPush PRN ×2 (12:36→14:36)
[2020-10-04] MEDS ORDERED: HYDROmorphone 1 MG/ML, 1ML INJ ONE ×4 (13:14→18:30)
[2020-10-04] MEDS: HYDROmorphone 1 MG/ML, 1ML INJ IVPush PRN ×6 (13:16→18:36)
[2020-10-04 13:30] LABS: BASOPHILS % (AUTO) 0 % (0-1); EOSINOPHILS % (AUTO) 3 % (1-7); LYMPHOCYTES % (AUTO) 27 % (22-44); MD NO; MEAN CORPUSCULAR HEMOGLOBIN 31.6 pg (27.0-34.8); MEAN CORPUSCULAR HGB CONC 33.4 g/dL (32.4-35.8); MONOCYTES % (AUTO) 7 % (2-9); NEUTROPHILS % (AUTO) 63 % (42-75); PLATELET COUNT 266 x10^3/uL (130-400); RED BLOOD COUNT 4.32 x10^6/uL (3.82-5.3); RED CELL DISTRIBUTION WIDTH 13.4 % (9.6-15.2)
[2020-10-04 13:40] LABS: ALANINE AMINOTRANSFERASE 25 U/L (12-78); ANION GAP 6 mmol/L (5-15); CALCIUM 8.9 mg/dL (8.5-10.1); CHLORIDE 107 mmol/L (98-107); CREATININE 1.11 mg/dL (0.55-1.02)
[2020-10-04 13:43] LABS: ALKALINE PHOSPHATASE 122 U/L (45-117); BILIRUBIN,TOTAL 0.5 mg/dL (0.2-1.0); TOTAL PROTEIN 7.4 g/dL (6.4-8.2)
[2020-10-04] MEDS ORDERED: METHOCARBAMOL 1,000 MG in DEXTROSE 5% 100 ML IV ONE (14:00)
--- NOTE | 2020-10-04 14:09 | NUR ---
TASK RN: PT RESTING ON [facility]. MEDICATED PER OCT. BP DECREASING AFTER ADMIN OF PAIN MEDICATIONS FROM PRIOR RN. [facility] AT BEDSIDE FOR ADMISSION.
[2020-10-04] MEDS ORDERED: LABETALOL 5MG/ML, 20ML ONE (14:12)
[2020-10-04] MEDS ORDERED: ACETAMINOPHEN 325 MG TABLET PO PRN ×2 (14:30→17:00)
[2020-10-04] MEDS ORDERED: MELATONIN 5 MG TABLET PO PRN (14:30)
[2020-10-04] MEDS ORDERED: DOCUSATE 100 MG CAPSULE PO PRN (14:30)
[2020-10-04] MEDS ORDERED: POLYETHYLENE GLYCOL 17 GM PACKET PO PRN (14:30)
[2020-10-04] MEDS ORDERED: LABETALOL 5MG/ML, 20ML IVPush ONE (14:30)
[2020-10-04] MEDS ORDERED: GUAIFENESIN/DM 200-20MG, 10ML UDC PO PRN (14:30)
[2020-10-04] MEDS ORDERED: ONDANSETRON 2MG/ML, 2ML IVPush PRN ×2 (14:30→17:00)
[2020-10-04] MEDS ORDERED: ENALAPRILAT 1.25 MG/ML, 2ML IVPush PRN (14:30)
--- NOTE | 2020-10-04 14:32 | NUR ---
TASK RN: REPORT GIVEN TO NICHOLE SAME DAY SURGERY RN. ALL QUESTIONS ANSWERED. PT TO GO TO OR AT 1530.
[2020-10-04] MEDS ORDERED: CHLORHEXIDINE 15 ML UDC ONE (14:48)
[2020-10-04] MEDS ORDERED: LACTATED RINGERS 1,000 ML IV SCH (15:00)
[2020-10-04] MEDS ORDERED: CHLORHEXIDINE 15 ML UDC MM ONE (15:00)
[2020-10-04] MEDS ORDERED: FENTANYL PF 250 MCG/5ML ONE (15:45)
[2020-10-04] MEDS ORDERED: MIDAZOLAM 1 MG/ML, 2ML ONE (15:45)
[2020-10-04] MEDS ORDERED: GLYCOPYRROLATE 0.2MG/1ML, 5ML ONE (15:50)
[2020-10-04] MEDS ORDERED: PROPOFOL 10 MG/ML, 20ML ONE (15:50)
[2020-10-04] MEDS ORDERED: CEFAZOLIN 1,000 MG ONE (15:50)
[2020-10-04] MEDS ORDERED: NEOSTIGMINE 1 MG/ML, 10ML ONE (15:50)
[2020-10-04] MEDS ORDERED: ONDANSETRON 2MG/ML, 2ML ONE (15:50)
[2020-10-04] MEDS ORDERED: SUCCINYLCHOLINE 20 MG/ML, 10ML ONE (15:50)
[2020-10-04] MEDS ORDERED: ROCURONIUM 10 MG/ML,10ML ONE (15:50)
[2020-10-04] MEDS ORDERED: MEPERIDINE/PF 25MG/0.5ML IVPush PRN (17:00)
[2020-10-04] MEDS ORDERED: DIPHENHYDRAMINE 50 MG/ML, 1ML IVPush PRN (17:00)
[2020-10-04] MEDS ORDERED: OXYcodone 5 MG/5 ML ORAL.SOL UDC PO PRN (17:00)
[2020-10-04] MEDS ORDERED: hydrALAzine 20 MG/ML, 1ML IV PRN (17:00)
[2020-10-04] MEDS ORDERED: LABETALOL 5MG/ML, 20ML IV PRN (17:00)
[2020-10-04] MEDS ORDERED: DIAZEPAM 5 MG/ML, 2ML IVPush PRN (17:00)
[2020-10-04] MEDS ORDERED: PROMETHAZINE 25 MG/ML, 1ML IVPush PRN (17:00)
[2020-10-04] MEDS ORDERED: VANCOMYCIN 1,000 MG ONE (17:15)
[2020-10-04] MEDS ORDERED: OXYcodone 5 MG/5 ML ORAL.SOL UDC ONE (17:46)
[2020-10-04] MEDS ORDERED: FENTANYL PF 100 MCG/2ML ONE (17:46)
[2020-10-04] MEDS ORDERED: MEPERIDINE/PF 25MG/ML,1ML ONE (17:46)
[2020-10-04] MEDS: FENTANYL PF 100 MCG/2ML IV PRN ×2 (17:51→17:57)
[2020-10-04] MEDS: POTASSIUM CHLORIDE 20 MEQ, MAGNESIUM SULFATE 2 GM, THIAMINE 200 MG, FOLIC ACID 1 MG in ... IV SCH (20:03)
[2020-10-04] MEDS: LEVETIRACETAM 500 MG TABLET PO SCH (20:03)
[2020-10-04] MEDS: METOPROLOL SUCCINATE 25 MG TAB.ER.24H PO SCH (20:03)
[2020-10-04] MEDS: GABAPENTIN 300 MG CAPSULE PO SCH (20:03)
[2020-10-04] MEDS: LURASIDONE 20 MG TABLET PO SCH (20:03)
[2020-10-04] MEDS: FAMOTIDINE 40 MG TABLET PO SCH (20:04)
[2020-10-04 20:07] VITALS: BP_SYST 134; BP_SYST 138; BP_DIAS 80; BP_DIAS 87
[2020-10-04] MEDS: OXYcodone/APAP 5/325MG TABLET PO PRN (21:18)
[2020-10-04 23:58] VITALS: BP 147/86
[2020-10-05 00:01] LABS: MICROSCOPIC AUTO
[2020-10-05] MEDS: morphine SULFATE 10 MG/ML, 1ML IVPush PRN ×5 (00:13→21:47)
[2020-10-05 00:24] VITALS: BP 138/86
[2020-10-05] MEDS: OXYcodone/APAP 5/325MG TABLET PO PRN ×3 (03:05→19:51)
[2020-10-05 04:20] VITALS: BP 116/78
[2020-10-05] MEDS: POTASSIUM CHLORIDE 20 MEQ, MAGNESIUM SULFATE 2 GM, THIAMINE 200 MG, FOLIC ACID 1 MG in ... IV SCH (05:10)
[2020-10-05 05:56] LABS: BASOPHILS % (AUTO) 0 % (0-1); EOSINOPHILS % (AUTO) 2 % (1-7); LYMPHOCYTES % (AUTO) 24 % (22-44); MEAN CORPUSCULAR HEMOGLOBIN 31.8 pg (27.0-34.8); MEAN CORPUSCULAR HGB CONC 33.4 g/dL (32.4-35.8); MEAN PLATELET VOLUME 8.3 fL (7.4-10.4); MONOCYTES % (AUTO) 12 % (2-9); NEUTROPHILS % (AUTO) 63 % (42-75); PLATELET COUNT 138 x10^3/uL (130-400); RED BLOOD COUNT 2.45 x10^6/uL (3.82-5.3); RED CELL DISTRIBUTION WIDTH 13.6 % (9.6-15.2)
[2020-10-05 06:03] LABS: MD NO
[2020-10-05 06:08] LABS: ANION GAP 7 mmol/L (5-15); CALCIUM 7.8 mg/dL (8.5-10.1); CHLORIDE 110 mmol/L (98-107)
[2020-10-05 07:20] VITALS: BP 113/75
[2020-10-05] MEDS: LEVETIRACETAM 500 MG TABLET PO SCH ×2 (08:59→21:48)
[2020-10-05] MEDS: FAMOTIDINE 40 MG TABLET PO SCH ×2 (08:59→21:48)
[2020-10-05] MEDS: DULOXETINE 30 MG CAPSULE.DR PO SCH (08:59)
[2020-10-05] MEDS: GABAPENTIN 300 MG CAPSULE PO SCH ×2 (08:59→21:48)
[2020-10-05] MEDS: AMLODIPINE 10 MG TAB PO SCH (09:00)
[2020-10-05] MEDS: METHOCARBAMOL 750 MG TABLET PO PRN ×3 (10:33→22:37)
[2020-10-05 12:43] VITALS: BP 119/79
[2020-10-05] MEDS ORDERED: OXYcodone/APAP 5/325MG TABLET PO PRN ×2 (15:00)
[2020-10-05 20:27] VITALS: BP 148/88
[2020-10-05] MEDS: METOPROLOL SUCCINATE 25 MG TAB.ER.24H PO SCH (21:47)
[2020-10-05] MEDS: LURASIDONE 20 MG TABLET PO SCH (21:48)
[2020-10-06] VITALS (7 sets, daily range): BP systolic 110–143; BP diastolic 65–84
[2020-10-06] MEDS: OXYcodone/APAP 5/325MG TABLET PO PRN ×6 (00:05→20:00)
[2020-10-06] MEDS: METHOCARBAMOL 750 MG TABLET PO PRN ×3 (04:36→17:30)
[2020-10-06] MEDS: morphine SULFATE 10 MG/ML, 1ML IVPush PRN ×5 (05:44→19:36)
[2020-10-06] MEDS: GABAPENTIN 300 MG CAPSULE PO SCH ×2 (07:39→20:00)
[2020-10-06] MEDS: DULOXETINE 30 MG CAPSULE.DR PO SCH (07:39)
[2020-10-06] MEDS: LEVETIRACETAM 500 MG TABLET PO SCH ×2 (07:39→19:59)
[2020-10-06] MEDS: AMLODIPINE 10 MG TAB PO SCH (07:39)
[2020-10-06] MEDS: FAMOTIDINE 40 MG TABLET PO SCH ×2 (07:39→20:00)
[2020-10-06] MEDS: ENOXAPARIN 40 MG/0.4 ML SQ SCH (11:00)
[2020-10-06] MEDS ORDERED: APIX5TAB PO (11:25)
[2020-10-06] MEDS ORDERED: LEVE500T53 PO (11:25)
[2020-10-06] MEDS ORDERED: AMLO-211 PO (11:25)
[2020-10-06 13:21] LABS: BASOPHILS % (AUTO) 1 % (0-1); EOSINOPHILS % (AUTO) 6 % (1-7); LYMPHOCYTES % (AUTO) 25 % (22-44); MEAN CORPUSCULAR HEMOGLOBIN 32.4 pg (27.0-34.8); MEAN CORPUSCULAR HGB CONC 34.7 g/dL (32.4-35.8); MEAN PLATELET VOLUME 8.2 fL (7.4-10.4); MONOCYTES % (AUTO) 12 % (2-9); NEUTROPHILS % (AUTO) 57 % (42-75); PLATELET COUNT 146 x10^3/uL (130-400); RED BLOOD COUNT 2.29 x10^6/uL (3.82-5.3); RED CELL DISTRIBUTION WIDTH 13.2 % (9.6-15.2)
[2020-10-06 13:27] LABS: MD NO
[2020-10-06] MEDS: LURASIDONE 20 MG TABLET PO SCH (20:00)
[2020-10-06] MEDS: METOPROLOL SUCCINATE 25 MG TAB.ER.24H PO SCH (20:00)
[2020-10-07 01:20] VITALS: BP 117/77
[2020-10-07] MEDS: OXYcodone/APAP 5/325MG TABLET PO PRN ×3 (04:01→11:34)
[2020-10-07] MEDS: METHOCARBAMOL 750 MG TABLET PO PRN ×2 (04:30→10:14)
[2020-10-07] MEDS: morphine SULFATE 10 MG/ML, 1ML IVPush PRN (06:10)
[2020-10-07] MEDS: LEVETIRACETAM 500 MG TABLET PO SCH (07:45)
[2020-10-07] MEDS: DULOXETINE 30 MG CAPSULE.DR PO SCH (07:46)
[2020-10-07] MEDS: AMLODIPINE 10 MG TAB PO SCH (07:46)
[2020-10-07] MEDS: FAMOTIDINE 40 MG TABLET PO SCH (07:46)
[2020-10-07] MEDS: GABAPENTIN 300 MG CAPSULE PO SCH ×2 (07:46→11:34)
[2020-10-07 08:03] VITALS: BP 115/63
[2020-10-07] MEDS: ENOXAPARIN 40 MG/0.4 ML SQ SCH (10:14)
== END 2020-10-07 12:00 | disposition home health service (06) | DRG 481 ==
LOC: ED 13:33 → SUATTDRO 13:53 → EDIP 14:03 → 4NE 18:53 → DCLOUNGE 10-07 11:45
PROVIDERS: ADMIT Internal Medicine; ATTEND Hospitalist
PROC: 0YQ Anatomical Regions, Lower Extremities, Repair (ICD-10-PCS; 2020-10-04)
PROC: 0QSC04Z Reposition Left Lower Femur with Internal Fixation Device, Open Approach (ICD-10-PCS; principal; 2020-10-04 15:30)
PROC: 30233N1 Transfusion of Nonautologous Red Blood Cells into Peripheral Vein, Percutaneous Approach (ICD-10-PCS; 2020-10-06)
DX: S72.402B Unspecified fracture of lower end of left femur, initial encounter for open fracture type I or II (principal); M97.12XA Periprosthetic fracture around internal prosthetic left knee joint, initial encounter; D62 Acute posthemorrhagic anemia; E78.5 Hyperlipidemia, unspecified; F31.9 Bipolar disorder, unspecified; G40.909 Epilepsy, unspecified, not intractable, without status epilepticus; G89.29 Other chronic pain; G89.11 Acute pain due to trauma; I10 Essential (primary) hypertension; S81.012A Laceration without foreign body, left knee, initial encounter; W01.0XXA Fall on same level from slipping, tripping and stumbling without subsequent striking against object, initial encounter; Z96.652 Presence of left artificial knee joint; Z20.822 Contact with and (suspected) exposure to COVID-19; M54.9 Dorsalgia, unspecified; Z79.891 Long term (current) use of opiate analgesic; Z90.710 Acquired absence of both cervix and uterus; Z98.84 Bariatric surgery status; Z88.0 Allergy status to penicillin; Z88.5 Allergy status to narcotic agent; Y93.89 Activity, other specified; Y92.89 Other specified places as the place of occurrence of the external cause; Y99.8 Other external cause status
CPT/HCPCS: 36415; 71045; 76000; 80048; 80053; 81001; 85014; 85018; 85025; 86850; 86900; 86923; 87635; 90471; 90715; 93005; 96374; 96375; 96376; 99285; C1713; G0378; J0690; J1170; J1650; J2175; J2250; J2405; J2704; J2710; J3010; J3370; J3411; J3475; J3480; J7042; Q0162; J0330; J2270; J2800; J7120; P9016

== ENCOUNTER 2020-11-07 12:08 | Emergency (ER) | payer MEDICARE ==
[~2020-11-07] VITALS: Ht 149.9 cm; Wt 47.6 kg
[~2020-11-07 12:08] MED LIST changes: +AMLO-211 PO; +APIX5TAB PO; +LEVE500T53 PO
--- NOTE | 2020-11-07 12:19 | NUR ---
BIB EMS . " PT CALLED BESAUSE HER BP WAS 181/120 AND IS NOT VERY MOBLE BECAUSE OF A L FEMER SURGERY" PT STATES THAT " I HAVE SEIZURES WHEN MY BP GETS MARCO A
[2020-11-07] MEDS ORDERED: ONDANSETRON ODT 4 MG ONE (12:56)
[2020-11-07] MEDS ORDERED: ONDANSETRON ODT 4 MG PO ONE (13:00)
--- NOTE | 2020-11-07 13:00 | NUR ---
PT IN BED HUSBEN AT BED SIDE.
[2020-11-07 13:01] LABS: BASOPHILS % (AUTO) 1 % (0-1); EOSINOPHILS % (AUTO) 1 % (1-7); LYMPHOCYTES % (AUTO) 14 % (22-44); MEAN CORPUSCULAR HEMOGLOBIN 31.6 pg (27.0-34.8); MEAN CORPUSCULAR HGB CONC 33.3 g/dL (32.4-35.8); MONOCYTES % (AUTO) 7 % (2-9); NEUTROPHILS % (AUTO) 77 % (42-75); PLATELET COUNT 225 x10^3/uL (130-400); RED BLOOD COUNT 4.33 x10^6/uL (3.82-5.3); RED CELL DISTRIBUTION WIDTH 15.2 % (9.6-15.2)
[2020-11-07 13:04] LABS: MD NO
[2020-11-07 13:14] LABS: ALBUMIN 3.7 g/dL (3.4-5.0); ANION GAP 7 mmol/L (5-15); CALCIUM 9.3 mg/dL (8.5-10.1); CHLORIDE 109 mmol/L (98-107); CREATININE 0.81 mg/dL (0.55-1.02)
[2020-11-07 13:17] LABS: TROPONIN I 0.027 ng/mL (0.000-0.045)
[2020-11-07] MEDS ORDERED: IBUPROFEN 600 MG TABLET PO ONE (13:30)
[2020-11-07] MEDS ORDERED: IBUPROFEN 600 MG TABLET ONE (14:01)
--- NOTE | 2020-11-07 14:09 | NUR ---
PT UP TO BSC,
[2020-11-07] MEDS ORDERED: PROMETHAZINE 25 MG/ML, 1ML ONE (14:25)
[2020-11-07] MEDS ORDERED: PROMETHAZINE 25 MG/ML, 1ML IM ONE (14:30)
[2020-11-07 14:59] VITALS: BP 168/78
== END 2020-11-07 15:20 | disposition home or self-care (01) ==
LOC: ED 15:17
DX: I10 Essential (primary) hypertension (principal); R11.2 Nausea with vomiting, unspecified; R07.9 Chest pain, unspecified; R94.31 Abnormal electrocardiogram [ECG] [EKG]; E78.5 Hyperlipidemia, unspecified; G40.909 Epilepsy, unspecified, not intractable, without status epilepticus; Z87.891 Personal history of nicotine dependence; Z88.0 Allergy status to penicillin; Z88.5 Allergy status to narcotic agent; Z88.8 Allergy status to other drugs, medicaments and biological substances
CPT/HCPCS: 36415; 71045; 80048; 82040; 84484; 85025; 93005; 96372; 99285; J2550; Q0162

== ENCOUNTER 2021-05-13 00:20 | Inpatient (IN) | payer MEDICARE, MEDICAID ==
[~2021-05-13] VITALS: Ht 149.9 cm; Wt 55.9 kg
[~2021-05-13 00:20] MED LIST changes: -DOXY100C2 PO; +DOXY100C5 PO; -HYDR-1067 PO; +HYDR-2214 PO
[2021-05-13] MEDS ORDERED: OMNIPAQUE 350 MG/ML, 100ML BOTTLE ONE (00:30)
--- NOTE | 2021-05-13 00:35 | NUR ---
CODE NEURO PG@[phone]
--- NOTE | 2021-05-13 00:36 | NUR ---
PT BIB [facility] FOR ALOC X5 HOURS. PT STARTED HAVING A SEIZURE ON THE WAY TO CT. PT GIVEN 2 MG OF VERSED BY EMS PER DR STEIN. PT DOES NOT HAVE A GAG REFLEX. PT BROUGHT BACK TO T3. DR STEIN SETTING UP FOR INTUBATION. PT ON A NRB 15L AT 99%. HAY FARMER ON. NSR NOTED. WILL CONTINUE TO MONITOR.
[2021-05-13 00:44] LABS: BASOPHILS % (AUTO) 0 % (0-1); EOSINOPHILS % (AUTO) 2 % (1-7); LYMPHOCYTES % (AUTO) 16 % (22-44); MEAN CORPUSCULAR HEMOGLOBIN 32.4 pg (27.0-34.8); MEAN CORPUSCULAR HGB CONC 33.8 g/dL (32.4-35.8); MEAN PLATELET VOLUME 8.2 fL (7.4-10.4); MONOCYTES % (AUTO) 5 % (2-9); NEUTROPHILS % (AUTO) 77 % (42-75); PLATELET COUNT 215 x10^3/uL (130-400); RED CELL DISTRIBUTION WIDTH 13.3 % (9.6-15.2)
--- NOTE | 2021-05-13 00:44 | NUR ---
DR STEIN INTUBATED PT WITH A 7.5 TUBE AT 22 AT THE LIP
--- NOTE | 2021-05-13 00:44 | NUR ---
RT IN ROOM
--- NOTE | 2021-05-13 00:48 | NUR ---
PT DR STEIN WANTS PT TO CT
[2021-05-13 00:50] LABS: ALANINE AMINOTRANSFERASE 59 U/L (12-78); ALBUMIN 3.8 g/dL (3.4-5.0); ANION GAP 7 mmol/L (5-15); CALCIUM 8.7 mg/dL (8.5-10.1); CHLORIDE 104 mmol/L (98-107); CREATININE 0.87 mg/dL (0.55-1.02); INTERNATIONAL NORMALIZED RATIO 0.93 (0.93-1.1); PROTHROMBIN TIME 9.9 Seconds (9.6-11.5)
[2021-05-13 00:53] LABS: ALKALINE PHOSPHATASE 157 U/L (45-117); BILIRUBIN,TOTAL 0.4 mg/dL (0.2-1.0)
[2021-05-13] MEDS ORDERED: ROCURONIUM 10 MG/ML,10ML IVPush ONE (01:00)
--- NOTE | 2021-05-13 01:09 | NUR ---
CANCEL CODE NEURO@[id number]
--- NOTE | 2021-05-13 01:13 | NUR ---
PT BACK FROM CT. DR STEIN HAS SEEN PATIENT. RT IN ROOM
[2021-05-13] MEDS ORDERED: LORazepam 2 MG/ML, 1ML ONE (01:28)
--- NOTE | 2021-05-13 01:40 | NUR ---
DR STEIN TO BEDSIDE. PT MOVING AROUND ROOM. PER DR STEIN, PROVIDER WANTED TUBE REMOVED. DR STEIN REMOVED BREATHING TUBE AND OG TUBE. VS STABLE. PT ALERT AND TALKING. VS STABLE.
--- NOTE | 2021-05-13 01:55 | NUR ---
BEDSIDE REPORT GIVEN TO ELEAZAR.
[2021-05-13] MEDS ORDERED: POLYETHYLENE GLYCOL 17 GM PACKET PO PRN (02:00)
[2021-05-13] MEDS ORDERED: ONDANSETRON 2MG/ML, 2ML IVPush PRN (02:00)
[2021-05-13] MEDS ORDERED: hydrALAzine 20 MG/ML, 1ML IVPush PRN (02:00)
[2021-05-13] MEDS ORDERED: SODIUM CHLORIDE 0.9% 1,000ML IVBOLUS ONE (02:00)
[2021-05-13] MEDS ORDERED: PROPOFOL 100 ML IV PRN (02:00)
[2021-05-13] MEDS ORDERED: MELATONIN 5 MG TABLET PO PRN (02:00)
[2021-05-13] MEDS ORDERED: ETOMIDATE 20 MG/10 ML IV ONE (02:00)
[2021-05-13] MEDS ORDERED: LABETALOL 5MG/ML, 20ML IVPush PRN (02:00)
[2021-05-13] MEDS ORDERED: HALOPERIDOL 1 MG TABLET PO PRN (02:00)
[2021-05-13] MEDS ORDERED: LORazepam 2 MG/ML, 1ML IVPush ONE (02:00)
[2021-05-13] MEDS ORDERED: MIDAZOLAM 1 MG/ML, 2ML IVPush ONE (02:00)
[2021-05-13] MEDS ORDERED: VECURONIUM 10 MG IVPush ONE (02:00)
[2021-05-13] MEDS ORDERED: SODIUM CHLORIDE FLUSH 10ML SYR IVF ONE (02:00)
[2021-05-13] MEDS ORDERED: ACETAMINOPHEN 325 MG TABLET PO PRN (02:00)
[2021-05-13] MEDS ORDERED: LORazepam 2 MG/ML, 1ML IVPush PRN (02:00)
--- NOTE | 2021-05-13 02:01 | NUR ---
PT A&O X4. VS STABLE. REPORT GIVEN TO KELLEY BUSH
[2021-05-13] MEDS ORDERED: hydrALAzine 20 MG/ML, 1ML ONE (02:27)
[2021-05-13 02:29] LABS: TROPONIN I < 0.015 ng/mL (0.000-0.045)
--- NOTE | 2021-05-13 02:29 | NUR ---
BREAK RN: ADMINISTERED HYDRALAZINE 10MG IV FOR SBP >220
[2021-05-13] MEDS ORDERED: MORPHINE SULFATE 4 MG/ML, 1ML ONE ×3 (02:43→15:46)
[2021-05-13] MEDS: morphine SULFATE 10 MG/ML, 1ML IVPush PRN ×4 (02:45→20:43)
[2021-05-13] MEDS ORDERED: ENALAPRILAT 1.25 MG/ML, 2ML ONE ×2 (03:05→11:45)
[2021-05-13] MEDS: ENALAPRILAT 1.25 MG/ML, 2ML IVPush PRN ×3 (03:08→11:47)
--- NOTE | 2021-05-13 03:08 | NUR ---
PT RESTING IN BED, ALERT AND ORIENTED, URINE VOIDED ONTO PAD, NO COMPLAINTS AT THIS TIME
--- NOTE | 2021-05-13 03:25 | NUR ---
PT C/O URINARY RETENTION, 600 IN BLADDER EVEN AFTER VOIDING, CATHETER ORDERED
--- NOTE | 2021-05-13 04:56 | NUR ---
REPORT RECIEVED FROM KELLEY BUSH. PT MOVED TO ROOM 18. CARE ASSUMED AT THIS TIME. PT IS HYPERTENSIVE AND AWAITING CARDENE DRIP FROM PHARMACY. PT IS AAOX4 WHEN AROUSED FROM SLEEP. MOVES ALL EXTREMITIES.
[2021-05-13] MEDS ORDERED: ONDANSETRON 2MG/ML, 2ML ONE (05:44)
--- NOTE | 2021-05-13 05:50 | NUR ---
PT REPORTS NAUSEA. NAUSEA MEDS ADMINISTERED. PT NOW LAYING IN BED WITH EYES CLOSED. ALIS.
--- NOTE | 2021-05-13 06:59 | NUR ---
CARE TRANSFERED. REPORT GIVEN TO KELLEY MEAD
[2021-05-13 07:00] LABS: BASOPHILS % (AUTO) 0 % (0-1); EOSINOPHILS % (AUTO) 0 % (1-7); LYMPHOCYTES % (AUTO) 10 % (22-44); MEAN CORPUSCULAR HEMOGLOBIN 31.6 pg (27.0-34.8); MEAN CORPUSCULAR HGB CONC 33.3 g/dL (32.4-35.8); MEAN PLATELET VOLUME 7.6 fL (7.4-10.4); MONOCYTES % (AUTO) 9 % (2-9); NEUTROPHILS % (AUTO) 80 % (42-75); PLATELET COUNT 230 x10^3/uL (130-400); RED CELL DISTRIBUTION WIDTH 12.8 % (9.6-15.2)
--- NOTE | 2021-05-13 07:06 | NUR ---
PT RESTING, REPORT FROM DARRON. PT SLEEPING. VSS
[2021-05-13 07:13] LABS: TROPONIN I < 0.015 ng/mL (0.000-0.045)
[2021-05-13 07:17] LABS: ANION GAP 10 mmol/L (5-15); CALCIUM 9.1 mg/dL (8.5-10.1); CHLORIDE 99 mmol/L (98-107)
[2021-05-13 07:28] LABS: CREATININE 0.83 mg/dL (0.55-1.02)
--- NOTE | 2021-05-13 07:55 | NUR ---
PT RESTLESS IN BED, STATES HER STOMACH HAS PAIN AND NAUSEAS. GIVEN [place], NO S/S DYSPHAGIA, NO ISSUES SWALLOWING. ORDERED CARD TRAY PER ORDERS
--- NOTE | 2021-05-13 08:21 | NUR ---
PT TRANSFERRED TO HOSPTAL BED. STOOD BEDSIDE W STEADY GAIT. NO DIZZINESS. BP REMAIN 150/80. NICARD GTT AT 7.5 MG/HR. CO ABDOMINAL PAIN. ADMIN MORPHINE 4MG PER ORDERS
--- NOTE | 2021-05-13 08:54 | NUR ---
FAMILY AT BEDSIDE.
--- NOTE | 2021-05-13 09:24 | NUR ---
PT SLEEPING, NICARIPENED AT 2.5 MG/GTT. BP 141/86
--- NOTE | 2021-05-13 09:53 | NUR ---
GIVEN CARDIAC MEAL TRAY. FAMILY AT BEDSIDE. STOPPED NICARDIPENE GTT. WILL REASSES BP IN 15 MIN
[2021-05-13] MEDS ORDERED: MAGNESIUM SULFATE PMX 2GM/50ML 50 ML IV ONE (10:00)
[2021-05-13] MEDS ORDERED: POTASSIUM CHLORIDE 20 MEQ TAB.ER.PRT PO ONE (10:00)
[2021-05-13] MEDS ORDERED: POTASSIUM CHLORIDE 20 MEQ TAB.ER.PRT ONE (10:03)
[2021-05-13] MEDS ORDERED: MAGNESIUM SULFATE PMX 2GM/50ML 50 ML ONE (10:04)
[2021-05-13] MEDS ORDERED: AMLODIPINE 10 MG TAB ONE (10:04)
[2021-05-13] MEDS: AMLODIPINE 10 MG TAB PO SCH (10:06)
--- NOTE | 2021-05-13 10:32 | NUR ---
1800 EMPTIED FROM PHAM BAG, CELAR YELLOW
[2021-05-13] MEDS ORDERED: MIDAZOLAM 1 MG/ML, 5ML ONE (11:14)
[2021-05-13] MEDS ORDERED: ETOMIDATE 20 MG/10 ML ONE (11:14)
[2021-05-13] MEDS ORDERED: PROPOFOL 10 MG/ML, 100ML IV ONE (11:14)
[2021-05-13] MEDS ORDERED: ROCURONIUM 10MG/ML,5ML ONE (11:14)
--- NOTE | 2021-05-13 11:15 | NUR ---
RESTARTED NICARDIPINE GTT. BP >160. PT SLEEPING ON AND OFF. DENIES PAIN AT THIS TIME
--- NOTE | 2021-05-13 11:25 | NUR ---
DISCUSSED W MD VASQUES. OK TO STOP NICARDIPINE GTT AND REASSES. OK TO USE ORAL BP MEDS. OK TO BE DOWNGRADED AND WILL UPDATE MD Snyder MONITORED BP
[2021-05-13] MEDS ORDERED: hydrALAzine 20 MG/ML, 1ML IV PRN (13:00)
--- NOTE | 2021-05-13 13:28 | NUR ---
AMBULATED TO [facility] W STEADY GAIT. VOIDED.
--- NOTE | 2021-05-13 14:01 | NUR ---
ASSUMED CARE OF PATIENT. REPORR GIVEN FROM KELLEY MEAD
--- NOTE | 2021-05-13 14:55 | NUR ---
PT RESTING IN ROOM. VS STABLE. NO ACUTE DISTRESS NOTED. MEDICAL CLAIMS ASSISTANT ON. NSR NOTED. CALL LIGHT IN PLACE. WILL CONTINUE TO MONITOR.
--- NOTE | 2021-05-13 15:20 | NUR ---
AT BEDSIDE. VS STABLE. MANAGER OF BUSINESS OPERATIONS ON. CALL LIGHT IN PLACE. WILL CONTINUE TO MONITOR.
--- NOTE | 2021-05-13 16:48 | NUR ---
PT IN MRI
--- NOTE | 2021-05-13 17:51 | NUR ---
SPOKE TO DR VASQUES. PT OKAYED TO EAT A REGULAR DIET
--- NOTE | 2021-05-13 18:06 | NUR ---
PT RESTING IN ROOM. VS STABLE. EXAMINATION SCORER ON. NSR NOTED. CALL LIGHT IN PLACE. WILL CONTINUE TO MONITOR.
--- NOTE | 2021-05-13 18:16 | NUR ---
PATIENT EATING IN ROOM
--- NOTE | 2021-05-13 18:24 | NUR ---
REPORT CALLED INTO KELLEY CADENA
[2021-05-13] MEDS ORDERED: PROP10TA51 PO (19:21)
[2021-05-13 19:25] VITALS: BP 132/69
[2021-05-13] MEDS: LEVETIRACETAM 500 MG TABLET PO SCH (20:42)
[2021-05-13] MEDS: METOPROLOL TARTRATE 50 MG TAB PO SCH (20:42)
[2021-05-13] MEDS ORDERED: METOPROLOL SUCCINATE 25 MG TAB.ER.24H PO SCH (21:00)
[2021-05-14 00:11] VITALS: BP 130/84
[2021-05-14] MEDS: morphine SULFATE 10 MG/ML, 1ML IVPush PRN ×2 (04:54→05:29)
[2021-05-14 05:34] VITALS: BP 125/82
[2021-05-14] MEDS: METOPROLOL TARTRATE 50 MG TAB PO SCH ×2 (06:23→16:56)
[2021-05-14 07:19] LABS: BASOPHILS % (AUTO) 0 % (0-1); EOSINOPHILS % (AUTO) 1 % (1-7); LYMPHOCYTES % (AUTO) 22 % (22-44); MEAN CORPUSCULAR HEMOGLOBIN 31.6 pg (27.0-34.8); MEAN CORPUSCULAR HGB CONC 33.2 g/dL (32.4-35.8); MEAN PLATELET VOLUME 7.9 fL (7.4-10.4); MONOCYTES % (AUTO) 13 % (2-9); NEUTROPHILS % (AUTO) 65 % (42-75); PLATELET COUNT 257 x10^3/uL (130-400); RED BLOOD COUNT 4.63 x10^6/uL (3.82-5.3); RED CELL DISTRIBUTION WIDTH 12.8 % (9.6-15.2)
[2021-05-14 07:22] LABS: ANION GAP 9 mmol/L (5-15); CALCIUM 9.5 mg/dL (8.5-10.1); CHLORIDE 101 mmol/L (98-107)
[2021-05-14 07:23] LABS: CREATININE 0.87 mg/dL (0.55-1.02)
[2021-05-14 07:39] VITALS: BP 127/84
[2021-05-14] MEDS: AMLODIPINE 10 MG TAB PO SCH (08:54)
[2021-05-14] MEDS: DULOXETINE 30 MG CAPSULE.DR PO SCH (08:54)
[2021-05-14] MEDS: LEVETIRACETAM 500 MG TABLET PO SCH ×2 (08:54→20:24)
[2021-05-14] MEDS ORDERED: OXYcodone IR 5MG TABLET ONE (09:10)
[2021-05-14] MEDS: OXYcodone IR 5MG TABLET PO PRN ×3 (09:13→20:24)
[2021-05-14] MEDS ORDERED: DOCUSATE 50 MG/5 ML, 10ML UDC PO PRN (12:30)
[2021-05-14 14:00] VITALS: BP 117/76
[2021-05-14 19:00] VITALS: BP 155/87
[2021-05-14] MEDS ORDERED: LURASIDONE 20 MG TABLET PO SCH (21:00)
[2021-05-15 00:15] VITALS: BP 131/84
[2021-05-15] MEDS: OXYcodone IR 5MG TABLET PO PRN ×4 (01:20→15:41)
[2021-05-15] MEDS: METOPROLOL TARTRATE 50 MG TAB PO SCH ×2 (06:00→08:40)
[2021-05-15 06:25] LABS: ANION GAP 9 mmol/L (5-15); CALCIUM 9.3 mg/dL (8.5-10.1); CHLORIDE 101 mmol/L (98-107)
[2021-05-15 06:27] LABS: CREATININE 0.89 mg/dL (0.55-1.02)
[2021-05-15 06:34] VITALS: BP 143/86
[2021-05-15 08:38] VITALS: BP 127/83
[2021-05-15] MEDS: LEVETIRACETAM 500 MG TABLET PO SCH (08:39)
[2021-05-15] MEDS: DULOXETINE 30 MG CAPSULE.DR PO SCH (08:40)
[2021-05-15] MEDS: AMLODIPINE 10 MG TAB PO SCH (08:40)
[2021-05-15] MEDS ORDERED: HYDR-3343 PO (13:31)
[2021-05-15 15:14] VITALS: BP 118/77
== END 2021-05-15 16:31 | disposition home or self-care (01) | DRG 70 ==
LOC: ED 00:33 → EDIP 02:12 → 4EST 18:38
PROVIDERS: ADMIT Internal Medicine; ATTEND Internal Medicine
PROC: 5A1935Z Respiratory Ventilation, Less than 24 Consecutive Hours (ICD-10-PCS; principal; 2021-05-13)
PROC: 0BH17EZ Insertion of Endotracheal Airway into Trachea, Via Natural or Artificial Opening (ICD-10-PCS; 2021-05-13)
DX: I67.83 Posterior reversible encephalopathy syndrome (principal); J96.01 Acute respiratory failure with hypoxia; I67.4 Hypertensive encephalopathy; I16.1 Hypertensive emergency; Z99.11 Dependence on respirator [ventilator] status; G40.909 Epilepsy, unspecified, not intractable, without status epilepticus; D72.829 Elevated white blood cell count, unspecified; E78.5 Hyperlipidemia, unspecified; F31.9 Bipolar disorder, unspecified; G89.29 Other chronic pain; I10 Essential (primary) hypertension; M34.1 CR(E)ST syndrome; M85.80 Other specified disorders of bone density and structure, unspecified site; M54.9 Dorsalgia, unspecified; Z96.652 Presence of left artificial knee joint; Z79.899 Other long term (current) drug therapy; Z87.891 Personal history of nicotine dependence; Z98.84 Bariatric surgery status; Z88.0 Allergy status to penicillin; Z88.5 Allergy status to narcotic agent; Z88.8 Allergy status to other drugs, medicaments and biological substances
CPT/HCPCS: 31500; 36415; 70450; 70496; 70498; 70551; 71045; 80047; 80048; 80053; 80320; 82962; 83690; 83735; 84145; 84443; 84484; 85025; 85610; 85730; 87070; 87205; 93005; 93306; 94002; 96361; 96374; 96375; G0378; J2250; J2405; J2704; Q9967; 92523-GN; G0480; J0360; J2060; J2270; J3475; J7030; J7050